=== PATIENT | female | born 1965 | race Caucasian/White ===

== ENCOUNTER 2020-02-02 08:23 | Emergency (ER) | payer OTHER ==
[~2020-02-02] VITALS: Ht 175.3 cm; Wt 90.7 kg
[~2020-02-02 08:23] MED LIST: ACETAMINOPHEN-1 EAC1 PO; LEVOTHYROXIN0.075 MG PO; PAXIL10 MG; PROZAC20 M1; TRAMADOL 50 MG50 MG
[2020-02-02 09:01] LABS: ABSOLUTE LYMPHOCYTES 0.4 thou/uL (0.8-5.3); ABSOLUTE MONOCYTES 0.6 thou/uL (0.0-1.2); ABSOLUTE NEUTROPHILS 5.7 thou/uL (1.6-8.1); BASOPHILS 0.3 %; EOSINOPHILS 0.6 %; HEMATOCRIT 40.5 % (37.0-47.0); HEMOGLOBIN 13.3 gm/dL (12.0-15.0); MCH 28.2 pg (26.0-34.0); MCHC 32.9 g/dL (28.0-37.0); MCV 85.7 fL (80.0-100.0); MONOCYTES 8.6 %; MPV 7.4 fl. (7.2-11.1); NUCLEATED RBCS 0 /100WBC; PLATELET COUNT* 238 thou/uL (150-400); POLYS 84.5 %; RBC 4.73 mil/uL (4.20-5.00); RDW-CV 15.4 % (10.5-14.5); WBC 6.7 thou/uL (4.0-11.0)
[2020-02-02 09:09] LABS: CREATININE 0.8 mg/dL (0.6-1.3); POTASSIUM 3.7 mmol/L (3.5-5.1)
[2020-02-02 09:13] LABS: ALBUMIN 3.3 g/dL (3.4-5.0); TOTAL BILIRUBIN 0.2 mg/dL (<0.1-1.0); TOTAL PROTEIN 7.1 g/dL (6.4-8.2)
[2020-02-02 10:16] LABS: URINE BILIRUBIN NEGATIVE (Negative); URINE BLOOD 1+ (Negative); URINE CLARITY CLEAR; URINE COLOR YELLOW; URINE GLUCOSE-RANDOM NEGATIVE (Negative); URINE KETONES NEGATIVE (Negative); URINE LEUKOCYTES-REFLEX NEGATIVE (Negative); URINE NITRITE-REFLEX NEGATIVE (Negative); URINE PROTEIN NEGATIVE (Negative); URINE SPECIFIC GRAVITY <= 1.005 (1.005-1.030); URINE UROBILINOGEN 0.2 E.U./dl (0.2-1.0)
[2020-02-02 10:24] LABS: SQUAMOUS 4-10 Moderate /LPF (0-3); URINE WBC-REFLEX 0-5 Rare /HPF (0-5)
[2020-02-02 10:25] LABS: BACTERIA-REFLEX 1-9 Few /HPF (None Seen); CASTS None Seen /LPF (None Seen); CRYSTALS None Seen /LPF (None Seen); MUCUS None Seen strn/LPF (None Seen); URINE RBC 3-10 Few /HPF (0-2)
[2020-02-02] MEDS ORDERED: CIPROFLOXACIN500 M1 PO (10:38)
[2020-02-02] MEDS ORDERED: FLAGYL500 M1 PO (10:38)
[2020-02-02 10:55] VITALS: BP 119/55
--- NOTE | 2020-02-02 16:44 | EKG ---
[place] [address] ELECTROCARDIOGRAM REPORT Name: NICOLETTE RUBI Room: [facility]#: [id number] Admission: 02/02/20 Attend Phys: Discharge: 02/02/20 Date of : 63 Date of Service: 02/02/2054 Report #: [id number] THIS REPORT FOR: //name// [facility] ED Test Date: 2020-02-02 Test Time: 08:54:30 Pat Name: NICOLETTE RUBI Department: Room: Gender: Transportation Agent: : [id number] Requested By: Reymundo Delcid Order Number: [id number] MD: Alex Greene Measurements Intervals [place] Rate: 80 P: 28 DC: 147 QRS: 0 QRSD: 97 T: 46 QT: 373 QTc: 431 Interpretive Statements Sinus rhythm Low voltage, extremity leads No previous ECG available for comparison Electronically Signed On 02-02-2020 16:42:46 CDT by Alex Greene [email or web address] <ELECTRONICALLY SIGNED> By: Alex Greene MD, [facility] 02/02/20 1642 3 Alex Greene MD, FACC /EPI
== END 2020-02-02 11:00 | disposition home or self-care (01) ==
LOC: M.ERS 08:23
PROVIDERS: Family Medicine
DX: R19.7 Diarrhea, unspecified (principal)

== ENCOUNTER → 2020-08-16 | Outpatient (CLI) | payer OTHER ==
[~2020-08-16] MED LIST changes: +CIPROFLOXACIN500 M1 PO; +FLAGYL500 M1 PO
== END ==
LOC: M.RAD 10:00
PROVIDERS: ATTEND Specialist
DX: Z12.31 Encounter for screening mammogram for malignant neoplasm of breast (principal)

== ENCOUNTER → 2021-10-10 | Outpatient (CLI) | payer OTHER | LOC: M.RAD 09:30 | PROVIDERS: ATTEND Specialist | DX: Z12.31 Encounter for screening mammogram for malignant neoplasm of breast (principal) ==